=== PATIENT | female | born 1950 | race Caucasian/White ===

== ENCOUNTER 2019-12-07 10:26 | Observation (INO) | payer MEDICARE ==
--- NOTE | 2019-12-01 18:26 | HP ---
HISTORY AND PHYSICAL: DATE OF ADMISSION/SURGERY: 12/07/19 DATE OF OFFICE VISIT: 11/29/19 SURGEON: Ginette Serrano MD * (DICTATED BY BASHIR BLACK) PROCEDURE: Right total hip arthroplasty. CHIEF COMPLAINT: Right hip pain. HISTORY OF PRESENT ILLNESS: Ms. Tejeda is a 69-year-old female with end- stage osteoarthritis of the right hip. She has failed conservative treatment and elected to proceed with a right total hip arthroplasty. PAST MEDICAL HISTORY: Hypertension. PAST SURGICAL HISTORY: 1. Cyst removal from ovary. 2. Colonoscopy. CURRENT MEDICATIONS: 1. Hydrochlorothiazide 12.5 mg daily. 2. Metoprolol 25 mg daily. 3. Alendronate sodium 70 mg weekly. ALLERGIES: No known drug allergies. FAMILY HISTORY: Diabetes, cancer, hypertension. SOCIAL HISTORY: She is a 69-year-old female. She lives with her . She does not smoke. REVIEW OF SYSTEMS: A complete 14-point review of systems was reviewed with the patient, it was all negative and noncontributory. She denies history of DVT, PE , hepatitis, HIV or anesthesia problems. PHYSICAL EXAMINATION GENERAL: She is well developed, well nourished, in no acute distress. VITAL SIGNS: She stands 5 feet 6 inches tall, weighs 177 pounds. Her blood pressure is 122/76. Her heart rate is 68. HEENT: Normocephalic, atraumatic. NECK: Supple. No palpable lymph nodes. PULMONARY: Lungs are clear to auscultation bilaterally. CARDIO: Regular rate and rhythm. Strong S1, S2. ABDOMEN: Soft, nontender, nondistended. NEUROLOGICAL: She is alert and oriented x3. MUSCULOSKELETAL: Right lower extremity, the skin is intact. There are no open wounds or abrasions. She walks with an antalgic type gait favoring her right hip. She has 80 degrees of hip flexion, 0 degrees internal rotation, 15 degrees of external rotation reproducing groin pain. She is able to dorsiflex and plantarflex. She has 2+ dorsalis pedis pulse and intact sensation. ASSESSMENT AND PLAN: Ms. Tejeda is a 69-year-old female with end-stage osteoarthritis of the right hip. She has failed conservative treatment and elected to proceed with a right total hip arthroplasty. The surgery scheduled for 12/07/[address] Serrano discussed the risks and benefits of the surgery at today's visit and all of her questions were answered. She will follow up with Dr. Serrano 2 weeks after the surgery. BASHIR BLACK [id number]/[facility] #: [id number] MTDPawan
[~2019-12-07 10:26] MED LIST: Acetaminophen TAB* 325 MG PO ONE; Buffered Lidocaine 1% SYRIN* 1 ML/SYRINGE INTRADERM ONE; HYDROmorphone INJ1* 1 MG/ML SYRINGE IV PRN; Lactated Ringers 1000 ML Bag* 1,000 ML IV SCH; Naloxone* 0.4 MG/ML 1 ML VIAL IV PRN; Ondansetron INJ* 2 MG/ML VIAL IV PRN; Tranexamic Acid 1,000 MG in NS 0.9% 50 ML* (outpatient use) IV SCH; celeCOXIB CAP* 200 MG PO ONE; diPHENhydraMINE IV* 50 MG/ML 1 ml VIAL (BENADRYL) IV PRN; oxyCODONE TAB* 5 MG TAB PO PRN
[2019-12-07] MEDS ORDERED: celeCOXIB CAP* 200 MG ONE (10:50)
[2019-12-07] MEDS ORDERED: Acetaminophen TAB* 325 MG ONE (10:50)
[2019-12-07] MEDS ORDERED: Buffered Lidocaine 1% SYRIN* 1 ML/SYRINGE INTRADERM ONE (10:51)
[2019-12-07] MEDS ORDERED: ceFAZolin 2 GM in NS PREMIX(*) 2 GM/100 ML BAG IVPB ONE (10:51)
[2019-12-07] MEDS ORDERED: fentaNYL* 50 MCG/ML 2 ML VIAL (100 MCG VIAL) ONE ×2 (11:45)
[2019-12-07] MEDS ORDERED: Midazolam* 1 MG/ML 2 ML VIAL (2 MG) ONE (11:45)
[2019-12-07] MEDS ORDERED: Lidocaine 2% PF * 5 ML VIAL ONE (11:45)
[2019-12-07] MEDS ORDERED: Propofol* 0 MG/0 ML BTL ONE (11:45)
[2019-12-07] MEDS ORDERED: Propofol* 10 MG/ML 20 ML BTL ONE (12:58)
[2019-12-07] MEDS ORDERED: Rocuronium* 10 MG/ML VIAL ONE (12:58)
[2019-12-07] MEDS ORDERED: Bupivacaine 0.5%* 50 ML MDV VIAL ONE (12:59)
[2019-12-07] MEDS ORDERED: Dexamethasone IV* 4 MG/ML 1 ML (4 MG) ONE (13:53)
[2019-12-07] MEDS ORDERED: Phenylephrine 40 MCG/ML SYRINGE ONE (14:24)
[2019-12-07] MEDS ORDERED: HYDROmorphone INJ1* 1 MG/ML SYRINGE ONE (15:15)
[2019-12-07] MEDS ORDERED: Ondansetron INJ* 2 MG/ML VIAL ONE ×2 (15:15→17:35)
[2019-12-07] MEDS ORDERED: Glycopyrrolate IV* 0.2 MG/ML 1 ML VIAL ONE (16:02)
[2019-12-07] MEDS ORDERED: Neostigmine Methylsulfate* 3 MG/3 ML SYRINGE ONE (16:02)
[2019-12-07] MEDS ORDERED: diPHENhydraMINE PO* 25 MG PO PRN (16:28)
[2019-12-07] MEDS ORDERED: Cyclobenzaprine TAB* 10 MG PO PRN (16:28)
[2019-12-07] MEDS ORDERED: Ondansetron INJ* 2 MG/ML VIAL IV PRN (16:28)
[2019-12-07] MEDS ORDERED: oxyCODONE/Acetamin 5/325 MG* TAB PO PRN (16:28)
[2019-12-07] MEDS ORDERED: Ondansetron TAB* 4 MG PO PRN (16:28)
[2019-12-07] MEDS ORDERED: Polyethylene Glycol 3350* 17 GM PACKET PO PRN (16:28)
[2019-12-07] MEDS ORDERED: diPHENhydraMINE IV* 50 MG/ML 1 ml VIAL (BENADRYL) IV PRN (16:28)
[2019-12-07] MEDS ORDERED: oxyCODONE TAB* 5 MG TAB PO PRN (16:28)
[2019-12-07] MEDS ORDERED: Ondansetron ODT TAB* 4 MG PO PRN (16:28)
[2019-12-07] MEDS ORDERED: Morphine INJ* 2 MG/ML 1 ML SYRINGE (TWO MG - NEW SYRINGE VERSION) IV PRN (16:28)
[2019-12-07] MEDS ORDERED: traMADol TAB* 50 MG PO PRN (16:28)
[2019-12-07] MEDS ORDERED: Magnesium Hydroxide LIQ* 30 ML UDC PO PRN (16:28)
[2019-12-07] MEDS: Lactated Ringers 1000 ML Bag* 1,000 ML IV SCH (17:36)
--- NOTE | 2019-12-07 19:32 | CONS ---
CONSULTATION REPORT: DATE OF CONSULT: 12/07/19 ATTENDING PHYSICIAN WHILE IN THE HOSPITAL: Dr. Sadie Jimenes (dictated by BASHIR Chen). CONSULTING PROVIDER: Dr. Ginette Serrano. PRIMARY CARE PROVIDER: Dr. Fallon. REASON FOR CONSULT: Co-management of chronic medical conditions. HISTORY OF PRESENT ILLNESS: Kyara Tejeda is a 69-year-old white female with past medical history significant for hypertension and osteoporosis, who presented to the hospital today for elective right total hip arthroplasty with Dr. Serrano. Dr. Serrano has asked the hospital medicine service to consult for co- management of chronic medical conditions. The patient was evaluated in the PACU shortly after surgery. The patient had general anesthesia and was awake and interactive. The patient tells me that she has no pain at this time and she overall has no complaints. She denies abdominal pain, nausea, chest pain, difficulty breathing, fevers or chills, dizziness or lightheadedness. There are no reports of vomiting. PAST MEDICAL HISTORY: 1. Hypertension. 2. Osteoporosis. PAST SURGICAL HISTORY: Ovarian cyst surgery several years ago. HOME MEDICATIONS: 1. Metoprolol succinate 25 mg p.o. q.a.m. 2. Hydrochlorothiazide 12.5 mg p.o. q.a.m. 3. Alendronate 70 mg p.o. weekly. 4. Turmeric 500 mg p.o. daily. 5. Meloxicam 15 mg p.o. q.a.m. 6. Magnesium oxide 250 mg p.o. q.a.m. 7. Vitamin B12 1000 mcg p.o. daily. 8. Ascorbic acid 1000 mg p.o. daily. 9. Vitamin D3 50 mcg p.o. daily. 10. Calcium citrate 1 tab p.o. daily. ALLERGIES: Rash and itching to LATEX. FAMILY HISTORY: Mother is living at age 91 with history of diabetes mellitus type 2, hypertension, and pernicious anemia. Father is living at age 92 with history of prior valve replacement. No history of diabetes or coronary artery disease. SOCIAL HISTORY: The patient lives with her . She has 2 adult children. She denies tobacco use, alcohol use, and drug use. She has never been a smoker. PHYSICAL EXAM: Recent vital signs: Temperature 97.7 degrees Fahrenheit, heart rate 58, respiratory rate 18, oxygen saturation 94% on room air, blood pressure 104/65. General: An elderly white female, who appears stated age, lying supine in PACU bed, appearing comfortable, in no acute distress. Eyes: PERRL. Sclerae anicteric. ENT: Lips appear minimally dry. Neck: Supple. Lungs: Clear to auscultation throughout. Cardio: Regular rate and rhythm without murmurs, rubs, or gallops. Abdomen: Normoactive bowel sounds x4 quadrants. Abdomen is soft, nontender, nondistended. Extremities: No clubbing, cyanosis, or edema. Neuro: The patient is alert and oriented x3. Able to dorsiflex and plantarflex bilateral lower extremities and sensation is grossly normal in bilateral lower extremities. Skin: Warm, dry, and intact. ASSESSMENT AND PLAN: Kyara Tejeda is a 69-year-old white female with past medical history significant for hypertension and osteoporosis, who presents for right total hip arthroplasty with Dr. Serrano today. Hospital Medicine has been consulted for co-management of chronic medical conditions. 1. Hypertension. The patient takes metoprolol succinate 25 mg daily as well as hydrochlorothiazide. We will be continuing this while she in the hospital and I will be placing holding parameters for her hydrochlorothiazide to hold for systolic blood pressure less than 110. 2. Osteoporosis. The patient takes alendronate weekly and we will be holding this while she is here. She will be able to resume this after surgery. 3. Status post right total hip arthroplasty. Management per Orthopedic Surgery. The patient will be participating in physical therapy, and pain control and bowel regimen have already been ordered. 4. DVT prophylaxis: Management per Orthopedic Surgery. It appears that the patient has already been started on Eliquis. 5. Disposition: Management per Orthopedic Surgery. Thank you for allowing us to participate in the care of this patient. We will follow during this hospitalization. BASHIR CHEN [id number]/[facility] #: [id number] MTDD
--- NOTE | 2019-12-07 20:56 | OP ---
Operative Report - Blank - Operative Report Date of Operation: 12/07/19 Note: KARLEE BELL 1950 Date Of Surgery: 12/07/19 Ginette Serrano MD Batch Freezer Operator: Gustavo CAMEJO did help throughout the procedure with preparation of the hip, wound retraction, manipulation of the hip, and wound closure. Anesthesiologist: Dr. Clarke Anesthesia Type: General Preoperative Diagnosis: Right severe degenerative osteoarthritis of the hip Postoperative Diagnosis: As above Procedure Performed: Right Total Hip Arthroplasty Complications: None Specimen: Femoral head and acetabular reamings sent to pathology. Hardware used: This is uncemented [place] total hip arthroplasty hardware for the femur a size 5 accolade II with 127 degree neck femoral component, for the acetabulum a size 50 D trident II tritanium cluster hole shell, one 15 mm screw , for the insert a size 36D trident X3 polyethylene insert, and for the femoral head a size 36 + 0 ceramic biolox V40 femoral head. Brief history/Indication: KARLEE BELL was known in clinic and had a history of severe right hip pain. She failed conservative treatment with anti- inflammatories, pain pills, intra-articular injections and physical therapy. She elected to undergo right total hip arthroplasty due to continued pain and decreased quality of life. Radiographs showed severe end stage osteoarthritis of the hip with bone on bone contact. Informed consent was obtained from the patient. She understood the risks of surgery included but were not limited to: bleeding, infection, damage to nearby structures, intraoperative fracture, nerve palsy, failure of the hardware, early loosening, stiffness or loss of motion, dislocation, leg length discrepancy, anesthesia complications, stroke, heart attack, blood clot and . She wished to proceed. Intra-Operative findings: Intraoperatively the patient was noted to have severe loss of cartilage of the acetabulum and femoral head. Description of the Procedure: KARLEE BELL was identified in the preanesthesia unit. Her right hip was marked as the correct operative side. Informed consent was signed and placed in the chart. The patient was taken to the operating room and placed under anesthesia without complication. A villalpando catheter was placed. The patient was placed on the peg board with all bony prominences well padded. The right lower extremity was prepped and draped in the usual sterile fashion. Preoperative time -out was made to correctly identify the patient, side and site. Appropriate intraoperative antibiotics were given within one hour of incision. A standard posterior incision was made and carried sharply down to the lateral fascia. A new 10 blade was used to make an incision in the fascia in line with the skin incision. A charnley retractor was placed. The piriformis and conjoined tendons were identified and elevated off the posterolateral femur using electrocautery. These were tagged with number 5 Ethibond. Next electrocautery was used to make a posterolateral capsular flap and this was tagged with number 5 Ethibonds. The hip was carefully dislocated. Lesser trochanter to the center of the femoral head was measured at 57 mm. The oscillating saw was used to make the femoral neck cut. The femoral head was carefully removed. The femur was retracted anteriorly and the acetabular retractors were placed. Long-handled knife was used to sharply remove any remaining labrum from the acetabular rim. The acetabulum was sequentially reamed up to a size 50. A bleeding subchondral bone bed was obtained. A trial liner was placed and had excellent fit and stability. A 50D cup with one screw was placed and had excellent stability with appropriate anteversion and abduction angle. A size 36D liner was impacted into the acetabular shell. The liner was checked for stability and was stable. Next attention was turned to preparation of the femoral canal. A canal finder was used to enter the proximal femur. The femoral canal was sequentially broached up to a size 5 femoral broach trial. A trial neck and 36 + 0 trial femoral head was chosen. Lesser trochanter to center of the femoral head measurement was satisfactory. The hip was reduced and taken through a range of motion. The hip was stable in all positions with good soft tissue tension and appropriate leg lengths. The hip was dislocated and all trials were removed. The final implant chosen was a accolade II size 5. This stem was impacted into the femoral canal without difficulty. The stem was stable with appropriate anteversion. The femoral head chosen was a 36 + 0 ceramic head. The head was impacted onto the femoral neck without difficulty. The final lesser trochanter to center of the femoral head measurement was satisfactory. The hip was reduced and taken through a range of motion. The hip was stable in all positions with good soft tissue tension and appropriate leg lengths. The hip was copiously irrigated with sterile saline. The previously tagged capsule and tendons were repaired to the posterolateral femur through two trochanteric drill holes. The lateral fascia layer was closed using number 1 vicryls. The rest of the incision was closed in a layered fashion using 0 and 2-0 vicryls. The skin was closed using 3-0 monocryl suture and Dermabond. Sterile adaptic, 4x4s and paper tape was used to cover the incision. The patients anesthesia was reversed without difficulty. She was taken to the PACU in stable condition. Intended weight-bearing will be as tolerated with posterior hip precautions.
[2019-12-07] MEDS: Docusate CAP* 100 MG PO SCH (21:06)
[2019-12-07] MEDS: Magnesium Hydroxide LIQ* 30 ML UDC PO SCH (21:06)
[2019-12-07] MEDS: Acetaminophen TAB* 325 MG PO SCH (21:53)
[2019-12-07] MEDS: ceFAZolin 1 GM ADVAN(*) 1 GM in NS 0.9% 50 ML* 50 ML IVPB SCH (21:53)
[2019-12-08] MEDS: Lactated Ringers 1000 ML Bag* 1,000 ML IV SCH (03:40)
[2019-12-08 06:07] LABS: Hematocrit 32 % (35-47); Hemoglobin 10.8 g/dL (12.0-16.0); Mean Platelet Volume 7.9 fL (7.4-10.4); Platelet Count 214 10^3/uL (150-450)
[2019-12-08] MEDS: ceFAZolin 1 GM ADVAN(*) 1 GM in NS 0.9% 50 ML* 50 ML IVPB SCH ×2 (06:15→13:56)
[2019-12-08] MEDS: Acetaminophen TAB* 325 MG PO SCH ×2 (06:16→13:55)
[2019-12-08 06:24] LABS: BUN/Creatinine Ratio 20.7 (8-20); Calcium 8.5 mg/dL (8.6-10.3); EGFR African American 83.6 (>60); EGFR Non-African American 69.1 (>60); Potassium 4.7 mmol/L (3.5-5.0)
[2019-12-08] MEDS ORDERED: Hydrochlorothiazide TAB* 25 MG PO SCH ×2 (09:00)
[2019-12-08] MEDS ORDERED: Vitamin THERAPEUTIC TAB PO SCH (09:00)
[2019-12-08] MEDS ORDERED: Metoprolol Tartrate TAB* 25 MG PO SCH (09:00)
[2019-12-08] MEDS ORDERED: Apixaban* 2.5 MG TAB PO SCH (09:00)
[2019-12-08] MEDS ORDERED: Metoprolol Succinate XL TAB* 25 MG PO SCH (09:00)
[2019-12-08] MEDS: Docusate CAP* 100 MG PO SCH (09:32)
[2019-12-08] MEDS: Magnesium Hydroxide LIQ* 30 ML UDC PO SCH (09:32)
--- NOTE | 2019-12-08 10:08 | PN ---
Progress Note - Progress Note Date of Service: 12/08/19 SOAP: Subjective: []Pt seen and examined at bedside. She feels well and desires DC home today. Denies CP, SOB, dizziness, nausea. Hip pain well controlled. Objective: []Gen: NAD LLE: left hip dressing changed, incision CDI, thigh soft, DF/PF intact, DP2+, sensation intact to light touch distally, cap refill less than two seconds distally Calves supple and nontender without erythema, edema or palpable Assessment: []POD 1 SP LTH Plan: []WBAT PT/OT posterior hip precautions eliquis 2.5 BID x 30 days post op DC home today if goals met with afternoon PT Vital Signs Temp 97.8 F 12/08/19 07:13 Pulse 77 12/08/19 07:13 Resp 12 12/08/19 09:33 BP 112/59 12/08/19 07:13 Pulse Ox 98 12/08/19 07:13 Intake & Output 12/07/19 12/08/19 12/08/19 18:59 06:59 18:59 Intake Total 1100 1615 Output Total 500 905 Balance 600 710 Weight 175 lb 11.335 oz Intake: IV Fluids 1100 lr 1100 IVPB 55 ABX - CEFAZOLIN 55 Oral 1560 Output: Urine 200 Hoover 905 Estimated Blood Loss 300 Other: # Bowel Movements 0 Laboratory Last Values Hgb 10.8 g/dL (12.0-16.0) L 12/08/19 05:57 Hct 32 % (35-47) L 12/08/19 05:57 Plt Count 214 10^3/uL (150-450) 12/08/19 05:57 MPV 7.9 fL (7.4-10.4) 12/08/19 05:57 Sodium 137 mmol/L (135-145) 12/08/19 05:57 Potassium 4.7 mmol/L (3.5-5.0) 12/08/19 05:57 Chloride 102 mmol/L (101-111) 12/08/19 05:57 Carbon Dioxide 30 mmol/L (22-32) 12/08/19 05:57 Anion Gap 5 mmol/L (2-11) 12/08/19 05:57 BUN 17 mg/dL (6-24) 12/08/19 05:57 Creatinine 0.82 mg/dL (0.51-0.95) 12/08/19 05:57 Est GFR ( Amer) 83.6 (>60) 12/08/19 05:57 Est GFR (Non-Af Amer) 69.1 (>60) 12/08/19 05:57 BUN/Creatinine Ratio 20.7 (8-20) H 12/08/19 05:57 Glucose 125 mg/dL (70-100) H 12/08/19 05:57 Calcium 8.5 mg/dL (8.6-10.3) L 12/08/19 05:57
--- NOTE | 2019-12-08 15:13 | DS ---
Orthopedic Discharge Summary - Discharge Summary Date of Admission:12/07/19 Date of Discharge: 12/08/19 Date of Surgery: 12/07/19 Attending Orthopedic Provider: Dr Serrano Pre-operative Diagnosis: Right hip osteoarthritis Operative Procedure: right total hip replacement Disposition of Patient:home Home care vs Outpatient services: outpatient pt Condition of Patient: stable Pain medication RX at discharge: percocet 5/325mg 1-2 q 4 hr mdd 10 DVT prophylaxis RX at discharge: eliquis 2.5 mg po bid x 30 days History: KARLEE BELL is a 69 year old F with years of increasingly severe right hip pain. Patient has failed conservative management and has elected to undergo a right total hip replacement Hospital Course: KARLEE was admitted to [facility] on 12/07/19. Patient underwent a right total hip replacement without complication followed by a brief recovery in PACU and transfer to the Short Stay Surgical Unit in stable condition. Our hospitalist service, physical therapy and occupational therapy also participated in this patients care. Post-op day 1: patient was alert and in no acute distress. Dressing was clean, dry and intact. Operative extremity dorsiflexion and plantarflexion intact, sensation intact to light touch distally, DP2+. Prior to dc: dressing was changed, incision was clean, dry and intact. Patient was deemed to be medically and orthopedically stable for discharge. Physical therapy goals were met. Home Medications Medication Instructions Recorded Confirmed Type Alendronate Sodium 70 mg PO WEEKLY 11/29/19 12/07/19 History Ascorbic Acid [Vitamin C with Sonia 1,000 mg PO QAM 11/29/19 12/07/19 History Hips] Calcium Citrate TAB* [Citracal 1 tab PO QAM 11/29/19 12/07/19 History TAB*] Cholecalciferol (Vitamin D3) 50 mcg PO QAM 11/29/19 12/07/19 History [Vitamin D3] Cyanocobalamin TAB* [Vitamin B12 1,000 mcg PO QAM 11/29/19 12/07/19 History TAB*] Hydrochlorothiazide TAB* 12.5 mg PO QAM 11/29/19 12/07/19 History [Hydrodiuril TAB*] Magnesium Oxide [Magnesium] 250 mg PO QAM 11/29/19 12/07/19 History Tumeric Curcumin 500 mg PO QAM 11/29/19 12/07/19 History Metoprolol Succinate XL TAB* 25 mg PO QAM 12/07/19 12/07/19 History [Toprol XL TAB*] Acetaminophen TAB* [Tylenol TAB*] 975 mg PO Q8HR tab 12/08/19 Rx Apixaban* [Eliquis*] 2.5 mg PO BID #60 tab 12/08/19 Rx Docusate CAP* [Colace Cap*] 100 mg PO BID PRN #50 cap 12/08/19 Rx oxyCODONE/Acetamin 5/325 MG* 2 tab PO Q4H PRN #60 tab MDD 10 12/08/19 Rx [Percocet 5/325 TAB*] Discharge Instructions following Orthopedic Surgery: Activity: * Weight Bearing as tolerated * Continue physical therapy and occupational therapy exercises as shown * you have elected outpatient physical therapy, please start therapy as an outpatient right away. Hip replacements: Continue Hip Precautions- do not cross legs or bend greater than 90 degrees/squat Wound care: * OK to shower on post-op day 3, no bathing, swimming, or submerging wound. * Use gentle soap, pat dry. Cover with gauze, DEYSI wrap or tape. Call Orthopedic office for: * Increased drainage * Redness * Increased pain * Fever Go to ER with shortness of breath or chest pain. Diet: * Regular diet * Increase fluids and fiber to prevent constipation. * Continue to use stool softeners, call office if no bowel motion within 48 hours. Medications See Home Medication List in your packet for medications that you should take after discharge. DVT Prophylaxis: Eliquis Dosin.5 mg, 1 tab every 12 hours x 30 days. Increases bleeding tendency Pain Control: Percocet 5/325 mg 1 tab for moderate pain and 2 tabs for severe pain by mouth every 4 hours as needed. Maximum of 10 tabs per day. Hold for sedation , wean off as soon as pain allows Please note that Percocet contains Tylenol (acetaminophen). Maximum daily dose of Tylenol is 4000 mg from all sources. Antibiotics are required prior to any dental work. FOLLOW UP: Follow up with [Zach] Within [14] days, call for appointment Please call our office with any questions or concerns ([phone]) [facility]
[2019-12-08 15:27] VITALS: BP 104/50
== END 2019-12-08 16:04 | disposition home or self-care (01) ==
LOC: OR 10:26 → INTOOBSV 16:28 → UNDOADMIN 16:28 → SSU 16:28
PROVIDERS: ADMIT Orthopaedic Surgery Adult Reconstructive Orthopaedic Surgery; ATTEND Orthopaedic Surgery Adult Reconstructive Orthopaedic Surgery
DX: M16.11 Unilateral primary osteoarthritis, right hip (principal); M25.551 Pain in right hip; I10 Essential (primary) hypertension; Z79.899 Other long term (current) drug therapy; Z91.040 Latex allergy status
CPT/HCPCS: 36415; 80048; 85014; 85018; 85049; 96365; 96375; A9270-GY; G0378; J0690; J1100; J1170; J2250; J2405; J2704; J2710; J3010; J3490